=== PATIENT | female | born 1965 | race Caucasian/White ===

== ENCOUNTER 2024-08-12 22:46 | Emergency (ER) | payer MEDICAID, SELFPAY ==
[2024-08-12] VITALS (8 sets, daily range): BP systolic 98–106; BP diastolic 63–71; PULSE 66–69; TEMP 36.6; O2SAT 97–98; BMI 22.0
--- NOTE | 2024-08-12 22:59 | ECG_ITS ---
[facility] Test Date: 2024-08-12 Pat Name: BRUNA TURNER Department: Room: - Gender: Female Abstract Manager: : 1965 Requested By: Jose Bautista Order Number: [id number] Jair MD: JOHNSON REHMAN M.D. Measurements Intervals [place] Rate: 66 P: 49 GA: 144 QRS: 86 QRSD: 76 T: 33 QT: 362 QTc: 376 Interpretive Statements 26675 Electronic atrial pacemaker 4068 Nonspecific [place] abnormality Abnormal ECG No previous ECG available for comparison Electronically Signed On 08-14-2024 20:16:11 EDT by JOHNSON REHMAN M.D.
--- NOTE | 2024-08-12 23:10 | ED.CHESTPAI1 ---
HPI - Chest Pain General Chief Complaint: Chest Pain Stated Complaint: CHEST PAIN, DIZZINESS Time Seen by Provider: 08/12/24 22:52 Source: patient Mode of arrival: ambulance Limitations: no limitations History of Present Illness HPI narrative: cc - chest pain Pt developed pain down the left arm while sitting at home a little over an hour ago. She also admitted to [facility] despite having a pacemaker. No recent fever or chills. no cough or cold symptoms. No GI symptoms. She was just evaluated in [facility] 3 days ago after collapsing - had a negative workup and was discharged home. No recent injury to the chest or left UE Related Data Home Medications ?Medication ?Instructions ?Recorded ?Confirmed acetaminophen 500 mg tablet 500 mg PO Q6H PRN fever or pain 08/12/24 08/12/24 aspirin 325 mg tablet 325 mg PO DAILY PRN chest pain 08/12/24 08/12/24 calcium carbonate (Tums Ultra) 500 mg PO Q4H PRN dyspepsia 08/12/24 08/12/24 estradiol 0.1 mg/24 hr semiweekly 2 patch transdermal 08/12/24 transdermal patch hydrocodone 5 mg-acetaminophen 325 1 tab PO Q8H PRN pain 08/12/24 08/12/24 mg tablet ibuprofen 600 mg tablet 600 mg PO Q8H PRN fever or pain 08/12/24 08/12/24 insulin glargine U-300 conc 300 10 unit subcut Q24H 08/12/24 08/12/24 unit/mL (1.5 mL) subcutaneous pen (Toujeo SoloStar U-300 Insulin) insulin lispro 100 unit/mL 1 sliding scale dose subcut ACHS 08/12/24 08/12/24 subcutaneous pen lidocaine 5 % topical patch 1 patch transdermal Q24H 08/12/24 08/12/24 meclizine 25 mg tablet 25 mg PO DAILY PRN dizziness 08/12/24 08/12/24 meloxicam 15 mg tablet 15 mg PO DAILY PRN pain 08/12/24 08/12/24 nitroglycerin 0.4 mg sublingual 0.4 mg sublingual Q5M PRN chest 08/12/24 08/12/24 tablet pain ondansetron 4 mg disintegrating 4 mg PO Q4H PRN nausea and vomiting 08/12/24 08/12/24 tablet progesterone micronized 100 mg 100 mg PO DAILY 08/12/24 08/12/24 capsule spironolactone 100 mg tablet 100 mg PO DAILY 08/12/24 08/12/24 Allergies Allergy/AdvReac Type Severity Reaction Status Date / Time morphine Allergy Intermediate Vomiting Verified 08/12/24 22:48 hydromorphone (From Dilaudid) AdvReac Intermediate Vomiting Verified 08/12/24 22:48 PFSH PFSH Social History Little interest or pleasure in doing things: not at all Feeling down, depressed, or hopeless: not at all Exam Narrative Exam Narrative: Nurses notes and vital signs reviewed and patient is not hypoxic. afebrile General: Well-appearing and in no apparent distress. Skin: Warm, dry, no pallor noted. Head: Normocephalic, atraumatic. Neck: Supple, non-tender. Eye: Pupils are equal, round and EOMI. No scleral icterus. Ears, Nose, Mouth, and Throat: Oral mucosa is moist Cardiovascular: Regular Rate and Rhythm without murmur, gallop or rub. Respiratory: No accessory muscle use or respiratory distress. Lungs are clear to auscultation, no wheezing, rales or rhonchi Chest Wall: no tenderness, crepitus or subcutaneous emphysema Musculoskeletal: normal ROM, no calf or popliteal tenderness, no lower extremity edema/swelling GI: Abdomen is soft, non-distended. Normal bowel sounds. No masses appreciated. No tenderness to palpation. No rebound, guarding, or rigidity noted. Neurological: A&O x4. No cranial nerve dysfunction observed. No truncal ataxia. Moves all extremities. Sensation intact. Psychiatric: Cooperative and interactive. Normal mood and affect. Constitutional Vital Signs, click to edit/add: Last Vital Signs Temp 98 F 08/12/24 22:48 Pulse 68 08/12/24 23:50 Resp 13 08/12/24 23:50 BP 98/65 08/12/24 23:30 Pulse Ox 97 08/12/24 23:50 O2 Del Method Room Air 08/12/24 22:48 Course Vital Signs Vital signs: Vital Signs Temperature 98 F 08/12/24 22:48 Pulse Rate 67 08/12/24 22:48 Respiratory Rate 21 H 08/12/24 22:48 Blood Pressure 103/71 08/12/24 22:48 Pulse Oximetry 98 04/12/25 22:48 Oxygen Delivery Method Room Air 08/12/24 22:48 Temperature 98 F 08/12/24 22:48 Pulse Rate 68 08/12/24 23:50 Respiratory Rate 13 08/12/24 23:50 Blood Pressure 98/65 08/12/24 23:30 Pulse Oximetry 97 08/12/24 23:50 Oxygen Delivery Method Room Air 08/12/24 22:48 MDM - Chest Pain MDM Narrative Medical decision making narrative: Patient was placed on library monitor and EKG obtained. Blood drawn and sent for evaluation. Portable chest x-ray obtained. He had no improvement in pain with 3 sl Nitro at home and is allergic to morphine and dilaudid. Chest x-ray was unremarkable -no pneumothorax, effusion or consolidation. Normal troponin and BNP, remainder of workup was unremarkable. Patient was given reassurance after we discussed her results and negative workup. 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 Lab Data Attestation: I reviewed the patient's lab results. Labs: Lab Results 08/12/24 Range/Units 23:00 WBC 6.3 (4.0-11.0) 10^3/uL RBC 3.88 L (4.20-5.40) 10^6/uL Hgb 12.7 (12.0-16.0) g/dL Hct 37.2 (36.0-48.0) % MCV 95.9 (81.0-99.0) fL MCH 32.7 (26.7-34.0) pg MCHC 34.1 (29.9-35.2) g/dL RDW 12.4 (11.0-15.0) % Plt Count 269 (150-450) 10^3/uL MPV 8.2 L (9.5-13.5) fL Neut % (Auto) 72.7 (43.0-75.0) % Lymph % (Auto) 16.6 L (20.5-60.0) % [place] % (Auto) 9.1 (1.7-12.0) % Eos % (Auto) 0.8 L (0.9-7.0) % Baso % (Auto) 0.3 (0.2-2.0) % Neut # (Auto) 4.6 (1.4-6.5) 10^3/uL Lymph # (Auto) 1.1 L (1.2-3.8) 10^3/uL [place] # (Auto) 0.6 (0.3-0.8) 10^3/uL Eos # (Auto) 0.1 (0.0-0.7) 10^3/uL Baso # (Auto) 0.0 (0.0-0.1) 10^3/uL Abs Immat Gran (auto) 0.03 (0.00-0.03) 10^3/uL Imm/Tot Granulo (auto) 0.5 (0.0-0.5) % Sodium 136 (136-145) mmol/L Potassium 4.5 (3.5-5.1) mmol/L Chloride 102 (98-107) mmol/L Carbon Dioxide 27.6 (21.0-32.0) mmol/L Anion Gap 10.9 BUN 9.0 (7.0-18.0) mg/dL Creatinine 0.97 (0.55-1.02) mg/dL Est GFR ( Amer) >60 (>=60 mL/min/1.73m^2) Est GFR (Non-Af Amer) 58 L (>=60 mL/min/1.73m^2) BUN/Creatinine Ratio 9.3 Glucose 141 H (74-106) mg/dL Calcium 8.9 (8.5-10.1) mg/dL Troponin I High Sens 4.2 (4.0-51.3) pg/mL NT-Pro-B Natriuret Pep 338.0 (<=900.0) pg/mL Imaging Data Chest x-ray: Attestation: I personally reviewed and interpreted this imaging study as follows: My impression: NAD ECG Data Attestation: I personally reviewed and interpreted this ECG as follows: Interpretation: EKG interpretation: Emergency Department physician interpretation. Electronic atrial pacemaker Heart Score History: Slightly/Non-Suspicious ECG: Normal Age: >45-<65 years Risk Factors: 1 or 2 Risk Factors Troponin: <Normal Limit Total Heart Score Recommendations & Risks:: 2 Discharge Plan Discharge Chief Complaint: Chest Pain Clinical Impression: Chest pain Patient Disposition: Home, Self-Care Time of Disposition Decision: 23:59 Prescriptions / Home Meds: No Action acetaminophen 500 mg tablet 500 mg PO Q6H PRN (Reason: fever or pain) aspirin 325 mg tablet 325 mg PO DAILY PRN (Reason: chest pain) calcium carbonate [Tums Ultra] 400 mg calcium (1,000 mg) tablet,chewable 500 mg PO Q4H PRN (Reason: dyspepsia) estradiol 0.1 mg/24 hr patch semiweekly 2 patch transdermal hydrocodone-acetaminophen 5-325 mg tablet 1 tab PO Q8H PRN (Reason: pain) ibuprofen 600 mg tablet 600 mg PO Q8H PRN (Reason: fever or pain) insulin glargine U-300 conc [Toujeo SoloStar U-300 Insulin] 300 unit/mL (1.5 mL) insulin pen 10 unit SUBCUT Q24H insulin lispro 100 unit/mL insulin pen 1 sliding scale dose SUBCUT ACHS lidocaine 5 % adhesive patch,medicated 1 patch transdermal Q24H meclizine 25 mg tablet 25 mg PO DAILY PRN (Reason: dizziness) meloxicam 15 mg tablet 15 mg PO DAILY PRN (Reason: pain) nitroglycerin 0.4 mg tablet, sublingual 0.4 mg sublingual Q5M PRN (Reason: chest pain) ondansetron 4 mg tablet,disintegrating 4 mg PO Q4H PRN (Reason: nausea and vomiting) progesterone micronized 100 mg capsule 100 mg PO DAILY spironolactone 100 mg tablet 100 mg PO DAILY Print Language: Gabonese Instructions: Chest Pain (ED) Referrals: Physician,Non-Staff, MD [Physician] - 1 week
[2024-08-12 23:11] LABS: Basophils Percent Auto 0.3 % (0.2-2.0); Eosinophils Absolute Auto 0.1 10^3/uL (0.0-0.7); Eosinophils Percent Auto 0.8 % (0.9-7.0); Hematocrit 37.2 % (36.0-48.0); Hemoglobin 12.7 g/dL (12.0-16.0); Immature Granulocytes Abs Auto 0.03 10^3/uL (0.00-0.03); Immature Granulocytes Pct Auto 0.5 % (0.0-0.5); Lymphocytes Absolute Auto 1.1 10^3/uL (1.2-3.8); Lymphocytes Percent Auto 16.6 % (20.5-60.0); Mean Corpuscular HGB Conc 34.1 g/dL (29.9-35.2); Mean Corpuscular Hemoglobin 32.7 pg (26.7-34.0); Mean Corpuscular Volume 95.9 fL (81.0-99.0); Mean Platelet Volume 8.2 fL (9.5-13.5); Monocytes Absolute Auto 0.6 10^3/uL (0.3-0.8); Monocytes Percent Auto 9.1 % (1.7-12.0); Neutrophils Absolute Auto 4.6 10^3/uL (1.4-6.5); Neutrophils Percent Auto 72.7 % (43.0-75.0); Platelet Count 269 10^3/uL (150-450); Red Blood Count 3.88 10^6/uL (4.20-5.40); Red Cell Distribution Width 12.4 % (11.0-15.0); White Blood Count 6.3 10^3/uL (4.0-11.0)
[2024-08-12 23:34] LABS: Anion Gap 10.9; BUN Creatinine Ratio 9.3; Calcium 8.9 mg/dL (8.5-10.1); Carbon Dioxide 27.6 mmol/L (21.0-32.0); Chloride 102 mmol/L (98-107); Estimated GFR (African America >60 (>=60 mL/min/1.73m^2); Estimated GFR (Non-African Ame 58 (>=60 mL/min/1.73m^2); Glucose 141 mg/dL (74-106); Potassium 4.5 mmol/L (3.5-5.1); Sodium 136 mmol/L (136-145); Troponin I High Sensitivity 4.2 pg/mL (4.0-51.3)
[2024-08-12] MEDS: KETOROLAC TROMETHAMINE 30 MG/ML VIAL IVP (23:42)
[2024-08-13 00:17] VITALS: BP 98/65; PULSE 68; O2SAT 97
[2024-08-13 00:17] LABS: Magnesium 1.8 mg/dL (1.8-2.4)
== END 2024-08-13 00:19 | disposition home or self-care (01) ==
PROVIDERS: Emergency Provider Emergency Medicine
DX: R07.9 Chest pain, unspecified (principal); R42 Dizziness and giddiness; Z95.0 Presence of cardiac pacemaker
CPT/HCPCS: 36415; 71045; 80048; 83735; 83880; 84484; 85025; 93005; 96374; 99285; J1885